=== PATIENT | male | born 1955 | race Caucasian/White ===

== ENCOUNTER 2018-05-14 07:26 | Emergency (ER) | payer OTHER, MEDICAID, MEDICARE ==
[2018-05-14] MEDS: IBUPROFEN 800 MG TAB PO (08:08)
[2018-05-14] MEDS: ONDANSETRON (ODT) 4 MG TAB ODT (08:08)
[2018-05-14] MEDS: ACETAMINOPHEN 325 MG TAB PO (08:17)
== END 2018-05-14 12:00 | disposition home or self-care (01) ==
LOC: E/R 07:26
DX: B34.9 Viral infection, unspecified (principal); I10 Essential (primary) hypertension; E11.9 Type 2 diabetes mellitus without complications; Z85.038 Personal history of other malignant neoplasm of large intestine; Z79.84 Long term (current) use of oral hypoglycemic drugs
CPT/HCPCS: 99283

== ENCOUNTER 2018-07-08 11:45 | Emergency (ER) | payer MEDICARE, OTHER, MEDICAID ==
[2018-07-08] MEDS: HYDROCODONE/APAP (5/325) TAB PO (14:01)
== END 2018-07-08 16:00 | disposition home or self-care (01) ==
LOC: FTE 11:45
DX: R07.9 Chest pain, unspecified (principal); I10 Essential (primary) hypertension; E11.9 Type 2 diabetes mellitus without complications; M25.512 Pain in left shoulder; R06.00 Dyspnea, unspecified; Z85.038 Personal history of other malignant neoplasm of large intestine
CPT/HCPCS: 71046; 73010; 73030; 99284-25

== ENCOUNTER 2018-08-18 14:42 | Emergency (ER) | payer MEDICARE, OTHER ==
[2018-08-18] MEDS: DEXAMETHASONE 10 MG/ML 1 ML INJ IM (15:19)
== END 2018-08-18 15:50 | disposition home or self-care (01) ==
LOC: FTE 14:42
DX: M54.2 Cervicalgia (principal); M54.5 Low back pain; E11.9 Type 2 diabetes mellitus without complications; I10 Essential (primary) hypertension; Z79.84 Long term (current) use of oral hypoglycemic drugs; Z85.038 Personal history of other malignant neoplasm of large intestine
CPT/HCPCS: 96372; 99284-25